=== PATIENT | female | born 1950 | race Caucasian/White ===

== ENCOUNTER → 2017-10-31 14:10 | Outpatient (CLI) | payer OTHER, MEDICARE, SELFPAY ==
--- NOTE | 2017-10-31 | DI.MRI.S_ITS ---
PROCEDURE: MR KNEE RT WO CON INDICATIONS: PRIMARY OSTEOARTHRITIS RT KNEE TECHNIQUE: Noncontrast sagittal PD fast spin echo and T2 fast spin echo with fat saturation, sagittal 3-D FLASH with fat saturation; coronal T1 spin echo and PD fast spin echo with fat saturation, and axial PD fast spin echo with fat saturation through the knee. COMPARISON: [facility] [place], CR, XR KNEE ARTHRITIC SERIES BI, 10/09/2017, 10:58. FINDINGS: Image quality: Excellent. Menisci: Amorphous high signal intensity within the anterior horn lateral meniscus is present, demonstrating superior and inferior articular surface extension, indicating degenerative tearing. Medial meniscus is intact and demonstrates mild medial extrusion. Cruciate ligaments: The anterior and posterior cruciate ligaments appear intact. Medial structures: The medial collateral ligament appears intact. Mild T2 signal elevation adjacent to the medial collateral ligament proximally is present. Visualized portions of the pes anserinus tendons appear normal. No abnormal bursal fluid. Lateral structures: The lateral collateral ligament, long and short heads of the biceps femoris tendon appear intact. The popliteus tendon appears normal. Iliotibial band appears normal. Anterior structures: The quadriceps and patellar tendons appear intact. There is lateral subluxation of the patella. There is mild edema in the infrapatellar fat pad. Bones and cartilage: No bone marrow contusions nor acute fracture. Mild ill-defined degenerative marrow edema within the lateral femoral trochlea. There is chronic well-corticated deformity of the lateral patellar facet, which demonstrates a pseudoarticulation with the lateral femoral trochlear prominence. There is moderate ill-defined T2 signal elevation within the lateral tibial plateau posteriorly adjacent to the proximal tibiofibular joint. There is mild diffuse articular cartilage loss overlying the weightbearing aspects of the medial and lateral compartments. Severe articular cartilage loss overlies the patellar apex, lateral patellar facet, lateral femoral trochlea. Joint space: There is a moderate knee joint effusion and a small Guerin's cyst. Normal appearing synovial plicae are incidentally noted. IMPRESSION: 1. Lateral patellar subluxation, which demonstrates chronic pseudoarthrosis with the lateral femoral trochlear prominence. There is associated chronic well-corticated erosion of the lateral patellar facet, and severe articular cartilage loss within the lateral patellofemoral compartment. 2. Degenerative tearing of the anterior horn lateral meniscus. 3. Proximal tibiofibular joint osteoarthritis. 4. Knee joint effusion and Guerin's cyst. 5. Mild MCL strain. Dictated by: Felipe Varela M.D. on 10/31/2017 at 15:56 Approved by: Felipe Varela M.D. on 10/31/2017 at 16:06
== END ==
PROVIDERS: Visit Provider Orthopaedic Surgery
DX: M23.241 Derangement of anterior horn of lateral meniscus due to old tear or injury, right knee (principal); M17.11 Unilateral primary osteoarthritis, right knee; M71.21 Synovial cyst of popliteal space [Baker], right knee; M25.461 Effusion, right knee
CPT/HCPCS: 73721

== ENCOUNTER 2018-02-21 09:47 | Inpatient (IN) | payer OTHER, MEDICARE, SELFPAY ==
[2018-02-06 13:59] VITALS: BMI 24.0
[2018-02-21] VITALS (13 sets, daily range): BP systolic 96–127; BP diastolic 54–77; PULSE 68–82; RESP 12–18; TEMP 35.8–36.7; O2SAT 90–100; BMI 24.5; BMI 26.0
--- NOTE | 2018-02-21 06:00 | DI.RAD.S_ITS ---
PROCEDURE: XR KNEE RT 1TO2V INDICATIONS: prosthesis placement TECHNIQUE: 2 view(s) of the knee acquired. COMPARISON: None. FINDINGS: Bones: Patient is status post knee joint arthroplasty. Hardware components are in expected positions. Visualized bony structures are intact. Soft tissues: Overlying postoperative changes are noted. IMPRESSION: Expected postsurgical changes. Dictated by: Ethan Grimes M.D. on 02/21/2018 at 18:06 Approved by: Ethan Grimes M.D. on 02/21/2018 at 18:07
[2018-02-21] MEDS: PREGABALIN 75 MG CAPSULE PO (10:46)
[2018-02-21] MEDS: ACETAMINOPHEN 325 MG TABLET 975 MG PO ×2 (10:46→20:31)
[2018-02-21] MEDS: MELOXICAM 7.5 MG TABLET 15 MG PO (10:46)
[2018-02-21] MEDS: LACTATED RINGERS 1,000 ML 42 ML IV ×2 (10:46→16:07)
[2018-02-21] MEDS: VANCOMYCIN 1,000 MG/200 ML FROZ.PIGGY 200 MG IV (13:21)
--- NOTE | 2018-02-21 14:22 | SUR.PREOP ---
Pt c/o itching and flushing after she was seen by Dr. Escobar. Pt reported MD increased ABX rate. Light erythema noted to pt's chest and face. Vancomycin stopped. Pt denied dyspnea or nausea. Dr. Escobar's PA notified, benadryl ordered.
[2018-02-21] MEDS: diphenhydrAMINE 50 MG/ML VIAL 25 MG IV (14:24)
--- NOTE | 2018-02-21 14:47 | PM.PREOP ---
Pre-operative Note Interval Note Pre-op Check: Yes History & Physical Reviewed by Physician and Yes Exam Performed Changes: No
--- NOTE | 2018-02-21 14:47 | PM.OP.1 ---
Operative Date/Time/Diagnoses Date of procedure: 02/21/18 Time of procedure: 14:59 Pre-op diagnosis: right knee oa Post-op diagnosis: same Procedure & Clinicians Procedure: Right total knee arthroplasty Same procedure as scheduled: Yes Indications: The patient has had progressively worsening right knee pain with radiographic changes consistent with arthritis. Non-operative management has failed and the patient has requested total knee replacement. The risks, benefits and alternatives to surgery were discussed with the patient prior to proceeding. Risks discussed included, but were not limited to, failure to relieve pain, stiffness, infection, nerve damage, deep venous thrombosis, pulmonary embolism, stroke, coma, heart attack, permanent paralysis and , as well as the potential need for eventual revision of the prosthetic. Surgeon: Jolene Escobar Travel Administrator: Sadie Griffiths Anesthesia Type: General and Spinal Operative Notes Findings: severe right knee osteoarthritis especially marked patellofemoral arthritic change with a relatively deficient lateral facet of her patella, good tracking of the patella and good stability Closure Type: primary Implants & Drains: Escobar and Nephashley Belle BCS2 5 FEMUR, 3 TIBIA, +9 POLY, 32 BY 7-1/2 PATELLA Estimated Blood Loss (mL): 250 Blood products transfused: none Tourniquet time (min): 78 Procedure in detail: The patient was seen in the pre-operative area, where the patient identified the right knee as the operative site and this was marked with my initials. The patient received pre-operative antibiotics, and was taken to the operating room and placed on the operative table in the supine position. After satisfactory anesthesia, a manager maritime out was performed. The right leg was encircled with a tourniquet about the proximal thigh, and the leg was prepared from the toes to the tourniquet with ChloroPrep in the usual fashion and draped through sterile drapes. The leg was elevated and exsanguinated with Eschmark bandage and the tourniquet inflated to [250] mmHg pressure. The knee was approached through an approximately 18 cm incision centered over the patella and carried into the knee through a medial parapatellar arthrotomy. A portion of the medial and lateral meniscus was resected. Soft tissue was carefully mobilized around the patella the patella was measured with a caliper. she had severe wear of her patella. The lateral facet of her patella had a defect in it which measured about total thickness of 8 mm, the medial aspect of the patella was 20 mm. Bone was resected from the patella and the patellar height was reconstituted with up an appropriate sized patellar component. I specifically medialized the patellar component and resected a portion of the severely worn lateral facet. We checked the thickness of the patella as well as patella tracking prior to making femoral cuts. A cover was then placed on the patella. A small amount of additional medial and lateral meniscus was resected. The visionare guide fit well to the distal femur. It looked like an appropriate distal femoral cut and the cut was made without difficulty. The rotation was assessed and the appropriate size femoral guide was placed on the distal femur and finishing cuts were made. There was no evidence of notching. The anterior, posterior and chamfer cuts were then made. The posterior osteophytes and soft tissues were then removed. The posterior capsule was injected with part of a mixture of 60 ml 0.25% Marcaine mixed with 20 ml Exparel for post operative pain control. The remainder of this mixture was injected into the capsule and subcutaneous tissues during cement curing. The tibia was prepared and the visionaire guide fit well to the distal tibia. The rotation was assessed. The patient was placed in extension residual medial and lateral meniscus as well as any residual bone was carefully resected. [No] additional tibia was resected. Hemostasis was achieved especially posteriorly. Additional local was injected into the posterior capsule. The extension gap was assessed and additional releases for gap balancing were performed as necessary. It was checked with the gap silver lap machine tender. The femoral component was trial was placed and the notch was finished. Trial tibial and femoral components were then placed and the knee placed through a range of motion. Range of motion was [0-130], with good stability throughout the range. The trials were then removed, and the tibia was finished. The bone was prepared with pulsatile lavage, and dried with a sponge. Cement was applied and the final prosthetics placed. Excess cement was removed during and after cement curing. A brief Betadine soak was performed. After confirming there was no extruded cement posteriorly, the final tibial insert was placed. The knee was copiously irrigated and the tourniquet deflated. Hemostasis was obtained with the Bovie. A drain was placed and brought out superolaterally, it was ultimately removed. The capsule was closed with interrupted poly suture. The subcutaneous layer was closed with barbed sutures, and the skin with a running 3-0 V-Lock suture and Surgical glue. An Aquacel Ag dressing was applied and the patient was taken to recovery having tolerated the procedure well. Complications: none Condition: stable Disposition: Acute Care Plan for aftercare: The patient will be maintained on a standard total knee replacement protocol with weight bearing as tolerated. The patient will receive aspirin and sequential compression devices for DVT prophylaxis. The patient will be discharged home when safe for the home environment.
[2018-02-21] MEDS: CLINDAMYCIN 900 MG/50 ML PIGGYBACK 50 MG IV (15:20)
--- NOTE | 2018-02-21 15:45 | SUR.OPER ---
Supine on padded OR bed. Pillow under head, arms secured on padded armboards <90 degree abduction. Safety belt across torso. Non-operative leg secured with tape over blanket over lower leg. Operative leg secured in [place]. Foam padded brace at thigh of operative leg.
[2018-02-21] MEDS: BUPIVACAINE 0.25% W/ EPI VIAL 50 ML INJ (16:00)
[2018-02-21] MEDS: BUPIVACAINE LIPOSOME 266 MG/20 ML VIAL INJ (16:03)
--- NOTE | 2018-02-21 17:45 | SUR.PHASEI ---
x-ray @ bedside currently
--- NOTE | 2018-02-21 18:19 | PC.NURSE ---
Cris shift note: Patient arrived from PACU with Kimberlee CARNEY, awake, alert and oriented. VSS. Oriented to room, environment, and plan of care. Fall precautions initiated, call light within reach.
[2018-02-21] MEDS: LACTATED RINGERS 1,000 ML 125 ML IV (18:29)
[2018-02-21] MEDS: ASPIRIN EC 81 MG TABLET PO (20:31)
[2018-02-21] MEDS: GABAPENTIN 300 MG CAPSULE PO (20:31)
[2018-02-21] MEDS: DOCUSATE 100 MG CAPSULE PO (20:31)
[2018-02-21] MEDS: DULOXETINE 20 MG CAPSULE PO (20:31)
[2018-02-21] MEDS: ZOLPIDEM 5 MG TABLET 10 MG PO (20:32)
[2018-02-22 01:24] VITALS: BP 111/63; PULSE 88; RESP 18; TEMP 36.7; O2SAT 93
[2018-02-22] MEDS: LACTATED RINGERS 1,000 ML 125 ML IV (02:31)
[2018-02-22 04:45] VITALS: BP 110/47; PULSE 64; RESP 18; TEMP 36.5; O2SAT 93
[2018-02-22 06:23] LABS: Hematocrit 30.8 % (36-46); Hemoglobin 10.2 g/dL (12.0-16.0)
--- NOTE | 2018-02-22 09:52 | PT.IIE ---
Current Diagnoses Unilateral primary osteoarthritis, right knee (02/21/18) Surgery Performed Operation Date: 02/21/18 12:00 Actual Procedures p Right Total Knee Arthroplasty(Right) - Jolene Escobar MD Surgical History (Last Updated 02/06/18 @ 14:09 by Rebecca Shirley, RN) History of back surgery (Acute ~2016) History of colonoscopy (Acute) History of total left hip arthroplasty (Acute 02/22/17) History of total right hip arthroplasty (Acute ~2002) Hx of hernia repair (Acute ~2016) S/P insertion of spinal cord stimulator (Acute) Status post Vilma fundoplication (Acute ~2016) Status post cataract extraction of both eyes with insertion of intraocular lens (Acute ~2016) Medical History (Last Updated 02/06/18 @ 14:35 by Rebecca Shirley RN) Easy bruisability (Acute) Esophageal spasm (Acute) Insomnia (Acute) Precancerous lesion (Acute) Pulmonary embolism (Acute ~2007) Sciatica (Acute) Toe deformity (Acute) Physical Therapy Inpatient Evaluation/Re-Eval M1 PT/OT-IP Prior Functional Status Start: 02/22/18 12:07 Freq: NEEDED Status: Active Protocol: Document 02/22/18 09:52 DLM (Rec: 02/22/18 12:26 DLM [id number]) Medical Review Prior Functional Status Medical History Reviewed Yes Diet/Fluid Consistency Regular Communication WNL Mobility and Gait Independent, using cane to manage her knee pain, community distances Activities of Daily Living and IADL's Independent Prior Functional Level (Other details) bilateral ANTONIA with last surgery a year ago Social History Household Members family none Living Arrangements House Number of Floors (Floors) One Floor Number of Stairs To Enter/Railing? 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 Her House is a duplex and she lives on the lower level. Her family member lives on the upper level. Her Sister will stay with her at discharge to help as needed. She normally is alone in her unit. She drives at baseline. M2 PT-IP Current Condition Start: 02/22/18 12:07 Freq: NEEDED Status: Active Protocol: Document 02/22/18 09:52 DLM (Rec: 02/22/18 12:26 DLM [id number]) Physical Therapy Current Condition Current Condition Evaluation Date 02/22/18 Treatment Diagnosis right TKA Onset Date 02/21/18 Weight Bearing Status Weight Bearing Status Weight Bear as Tolerated M3 PT-IP Subjective Start: 02/22/18 12:07 Freq: NEEDED Status: Active Protocol: Document 02/22/18 09:52 DLM (Rec: 02/22/18 12:26 DL [id number]) Subjective Physical Therapy Visit Type Type Initial Evaluation Visit Start Time 09:00 Visit Stop Time 09:52 Total Visit Minutes 52 Number of 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 Visits 0 Physical Therapy Visit Comments Patient Comments She wants to go home today, feels she is doing well post- op, worried about increasing her left knee pain with increased strain on it following right knee sx Patient Goals go home, return to work Noel 11 Therapy Pain Assessment Pain When Pain Assessed After Treatment Pain Present Pain Present Pain Reported Location Right Knee Intensity 6 Scale Used Numeric (1 - 10) Description Aching Pain Management Techniques Apply Cold Elevation M4 PT-IP Mobility and Gait Start: 02/22/18 12:07 Freq: NEEDED Status: Active Protocol: Document 02/22/18 09:52 DLM (Rec: 02/22/18 12:26 DL [id number]) PT-Bed Mobility Assessment Rolling Level of Assist Independent Supine to Sit Supine to Sit Independent Sit to Supine Sit to Supine Independent Scooting Scooting to Edge of Bed Independent Scooting Up and Down in Bed Independent PT-Transfer Assessment Sit to and From Stand Sit to and from Stand Independent Use of Upper Extremities Equipment Transfer Assistive Device Gait Belt Front Wheeled Walker Transfers Transfer Destination Chair Transfer Technique Stand Step Pivot Transfer Ability Level of Assist Independent Use of Upper Extremities Gait Assessment Gait Gait Assistance Required: Standby Assistance Distance (Feet) 160 Able to Maintain Weight Bearing Status Yes During Gait Assistive Devices Assistive Device Gait Belt Front Wheeled Walker Gait Deviations General Gait Pattern Antalgic Factors Limiting Gait Function Factors Limiting Gait Function Decreased Activity Tolerance Decreased Strength Limited Range of Motion Pain Comments Gait Comments pt started with step-to pattern but advanced herself to step-through with good control and balance, encouraged her to go slowly during gait for safety Stair Climbing Assessment Comments Stair Climbing Comments she has no stairs at home nor work and declined to do them this visit, verbalized training in step-to sequencing she should use when doing steps, will defer further training to out-pt PT PT-Balance Assessment Sitting Balance and Reactions Static Sitting Balance Ability Normal Dynamic Sitting Balance Ability Normal Standing Balance and Reactions Static Standing Balance Ability Good Dynamic Standing Balance Ability Good Device Used FWW M5 PT-IP Objective Assessments Start: 02/22/18 12:07 Freq: NEEDED Status: Active Protocol: Document 02/22/18 09:52 DLM (Rec: 02/22/18 12:26 DL [id number]) Orientation Orientation/Cognition Level of Alertness Alert Orientation Name Age Birthday Month Date Year Day of Week Place Situation Language Function Ability No Deficits Noted Memory Description No Deficits Noted Comments pt recalls exercises she was instructed in before surgery, she was not able to do many of them before sx due to knee pain Gross Range of Motion Upper Extremity ROM Assessment Within Functional Limits Lower Extremity ROM Assessment Right Impaired Impairments knee active flexion to 90 degress and extension to 0 degrees Strength Upper Extremity Strength Assessment Within Functional Limits Lower Extremity Strength Assessment Right Impaired Hip independent with straight leg raise with mild extensor lag Knee 3+/5 Ankle DF 5/5 Coordination Assessment Gross Coordination Gross Coordination WNL Sensation Assessment Sensation Gross Sensation WNL Muscle Tone Muscle Tone WNL Yes Other Assessments Other Other Assessments pt also has hx of left knee arthritis and pain, it did not limit her activity today but it may limit her as she progresses her activity level M6 PT-IP Treatment Start: 02/22/18 12:07 Freq: NEEDED Status: Active Protocol: Document 02/22/18 09:52 DLM (Rec: 02/22/18 12:26 [facility] [id number]) Physical Therapy Treatment Exercises Exercises Ankle Pumps Quad Sets Heel Slides Straight Leg Raises Short Arc Quads Passive Knee Extension Hang Seated Knee Flexion/Extension Education Education Provided Weight Bearing Status Post-Op Packet Safety Other Treatments Other Treatment Performed provided written post-op packet and HEP, answered pt's questions M7 PT-IP Assessment and Plan Start: 02/22/18 12:07 Freq: NEEDED Status: Active Protocol: Document 02/22/18 09:52 DLM (Rec: 02/22/18 12:26 DL [id number]) PT Summary Assessment and Plan Potential Rehabilitation Potential Excellent Status of Condition at Evaluation Evolving Summary Impairments Pain ROM Strength Balance Gait Activity Tolerance Assessment Summary She is tolerating activity well this visit. She is able to ambulate in the vasques with FWW and safe gait pattern. She describes increased right knee pain with increased distance of gait. Pt feels ready to go home today. She appears safe to discharge home with family support when medically cleared. Goals Gait Goal Independent Front Wheel Walker Gait Distance 200 Other Goals Independent with HEP Days to Meet Goals 1 Frequency of Treatment Frequency Of Treatment Twice a Day Treatment Plan Physical Therapy Treatment Plan Bed Mobility Training Transfer Training Gait Training Therapeutic Exercise Post Op Education Discharge Planning Hot or Cold Pack Recommendations To Nursing Amount of Assist Needed Standby Assistance Discharge Recommendations PT Discharge Recommendations Home with Assistance Outpatient PT Other Discharge Recommendations cleared for discharge home today if medically cleared by physician
[2018-02-22] MEDS: OXYCODONE IR 5 MG TABLET PO (09:57)
[2018-02-22] MEDS: DOCUSATE 100 MG CAPSULE PO (09:59)
[2018-02-22] MEDS: GABAPENTIN 300 MG CAPSULE PO (09:59)
[2018-02-22] MEDS: PANTOPRAZOLE 20 MG TABLET PO (09:59)
[2018-02-22] MEDS: ACETAMINOPHEN 325 MG TABLET 975 MG PO (09:59)
[2018-02-22] MEDS: ASPIRIN EC 81 MG TABLET PO (09:59)
[2018-02-22] MEDS: DULOXETINE 20 MG CAPSULE PO (09:59)
[2018-02-22 10:00] VITALS: BP 106/61; PULSE 84; RESP 20; TEMP 36.5; O2SAT 95
--- NOTE | 2018-02-22 10:28 | P.DS_ITS ---
History of Present Illness Date Patient Seen: 02/22/18 Time Patient Seen: 10:26 Chief complaint: [id number] Narrative: Hospital day 2, postop day 1 following right total knee arthroplasty by Dr. Escobar. Patient states she is doing well. She was able to get some sleep during the night. She has a Perez path patient. She feels that she is ready to go home today. She has not had physical therapy yet. Discharge Providers Date of admission: 02/21/18 09:47 Consults: 02/21/18 06:00 Consult to Anesthesiology Routine Comment: Consulting Provider: Anesthesiologist Reason for consultation: Regional block for post operative pain control 02/21/18 18:17 Consult to Discharge Planning Routine Comment: Consult to Physical Therapy Evaluate & Treat Comment: Physician Instructions: postop TKA protocol Consult to Respiratory Therapy Evaluate & Treat Comment: Physician Instructions: Evaluate and treat Discharge provider: Ge Mcrae PA-C Discharge Date: 02/22/18 Summary Discharge Diagnosis: Status post right total knee arthroplasty Hospital Course: Patient brought to hospital on 02/21/2018 for above-noted surgery. Remained stable postoperatively. Gradually advanced with the therapy. Ready for discharge home on postop day 1. Status at Discharge Cognitive/behavioral status at discharge: Alert oriented no acute distress. Functional status at discharge: uses cane/walker Overall status at discharge: patient is progressing back to baseline Time Spent with Patient Less than 30 minutes Exam Vital Signs (past 8 hours): - 02/22/18 04:45 Temperature 97.7 F Pulse Rate 64 Respiratory Rate 18 Blood Pressure 110/47 L Pulse Oximetry 93 Oxygen Delivery Method Room Air Oxygen Flow Rate 0 Narrative Exam Narrative: Right leg. Nicolas wrap and Aquacel dressing to right knee either dry without drainage or inflammation. No calf pain or swelling. Pulses symmetrical. Patient able to fire her quad. Objective Labs Result Diagrams: 02/22/18 06:14 Labs: Laboratory Results - last 24 hr 02/22/18 06:14 Hgb 10.2 L Hct 30.8 L Discharge Plan Discharge Plan Patient Disposition: Home Discharge comment: Discharged home after cleared by physical therapy. Patient has postop pain medications at home. She is scheduled to go to [facility] [place]. Discharge Med Rec/Prescriptions Prescriptions: New acetaminophen 325 mg Tablet 975 mg PO TID Qty: 30 RF: 0 aspirin 81 mg Tablet,Delayed Release (Dr/Ec) 81 mg PO BID Qty: 30 RF: 0 Continue zolpidem 10 MG tablet 10 mg PO HS Qty: 0 RF: 0 oxycodone-acetaminophen 10 MG/325 MG tablet 1 tab PO TID Qty: 0 RF: 0 gabapentin [Neurontin] 300 MG capsule 300 mg PO TID Qty: 0 RF: 0 omeprazole 20 mg Capsule,Delayed Release(Dr/Ec) 20 mg PO DAILY RF: 0 duloxetine 20 mg Capsule,Delayed Release(Dr/Ec) 20 mg PO BID RF: 0 Provider Discharge Instructions Diet: Diet as Tolerated Activity: Ambulate as tolerated. Do the right knee range of motion as much as possible. Cold/Heat Therapy: Cold pack to right knee as needed. Skin/Wound/Dressing Care Dressing: Keep Aquacel dressing on until postop visit. Visit Report/Discharge Packet Instructions: DI for Knee Replacement Discharge Data Attending Provider: Jolene Escobar Admit Date/Time: 02/21/18 09:47
--- NOTE | 2018-02-22 11:06 | PC.NURSE ---
Addendum entered by Samaria Bailey R.N. 02/22/18 12:27: IV discontinued, discharge instructions provided to patient and no questions remain. Patient is packed up and GREEN BUILDING ENGINEER is helping her get dressed and in wheelchair. Original Note: AM Shift pt AO, and receptive to care. Up to BSC with 1PA. Reporting 5/10 pain, administered 975 Tylenol and 5mg Oxycodone to decrease to 3/10 pain. Up in chair with family at bedside. PT worked with pt earlier and awaiting their eval for DC.
[2018-02-22 11:25] VITALS: BP 112/55; PULSE 90; RESP 16; TEMP 37; O2SAT 97
--- NOTE | 2018-02-22 13:39 | CM.DANOTE ---
Discharge Planning/Care Management CM Discharge Assessment Start: 02/22/18 13:37 Freq: Status: Discharge Protocol: Document 02/22/18 13:00 (Rec: 02/22/18 13:39 [id number]) Discharge Planning Assessment Assigned Medical Reviewer JF Velasquez Advance Directives? Yes History Provided By Patient Medical Record Has Patient been admitted in last 30 No days? Prior Living Arrangements House Household Members family none Type of transporation used prior to Drives own vehicle admit Independent with ADL's Yes Is patient alert and oriented? 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 Referrals Initiated None needed Whiteboard Updated in Patient Room with Yes name and ext. # of Medical Reviewer Please Provide Date Initial DC 02/22/18 Assessment Was Performed Pre-Anesthesia Assessment Start: 02/06/18 13:59 Freq: Status: Complete Protocol: Document 02/06/18 13:59 CAB (Rec: 02/06/18 14:34 CAB [id number]) Pre-Anesthesia Assessment Patient Information Reviewed Via Chart Review Comment Unable to reach pt for scheduled phone PAC appointment Primary Care Provider reid Seen Specialist in Last 12 Months Yes Specialist Seen Orthopedist Primary Language Lithuanian Height 175.26 cm Weight 73.936 kg Body Mass Index (BMI) 24.0 Hearing Ability Normal Visual Assist Magnifying Glass Hx Anesthesia Reactions No Hx Family Anesthesia Reaction No Hx Malignant Hyperthermia No Anesthesia Review Requested No Beer Runner No Alcohol Intake Frequency Other: None Smoking Status Never smoker Substance Use Type does not use Pain Present Pain Reported Musculoskeletal Symptoms Abnormal Gait Difficulty Walking Joint Pain History of Falling (Recent or History of No ) Patient is completely paralyzed or No completely immobile Prosthesis or Orthotic Device Cane Mental Status Oriented to own ability Is patient on oxygen? No Does patient have BASSETT/SOB No Hx Sleep Apnea No Suspected Sleep Apnea No Currently Taking a Beta Kuldeep No Hx Chest Pain No Hx SOB No Hx Syncope or Dizziness No Anti-Coagulant Therapy No Has a Maintenance Manager No Cardiac Testing No Hx Pacemaker/ICD No Pacemaker Rep Required? No Cardiac Clearance Received Not Applicable Bladder Pattern Nocturia Urinary Catheter Present No Hx Urinary Self Catheterization No Diabetes No Patient No Lactating No Presence of External or Internal Medical Yes Devices Comment Spinal cord stimulator Marital Status Single Lives With none Advance Directives? No PAC Comment Chart review with prior admit 02/22/17 for LT ANTONIA
== END 2018-02-22 12:45 | disposition home or self-care (01) | DRG 470 ==
PROVIDERS: Admitting Provider Orthopaedic Surgery; Visit Provider Orthopaedic Surgery
PROC: 0SRC0JZ Replacement of Right Knee Joint with Synthetic Substitute, Open Approach (ICD-10-PCS; CPT 27447; principal; 2018-02-21 12:00)
DX: M17.11 Unilateral primary osteoarthritis, right knee (principal); Z86.711 Personal history of pulmonary embolism
CPT/HCPCS: 36415; 73560; 85014; 85018; 97110; 97162; C1776; C9290; J1100; J1200; J2250; J2274; J2405; J2704; J3010; J3370

== ENCOUNTER 2018-09-26 06:03 | Inpatient (IN) | payer OTHER, MEDICARE, SELFPAY ==
[2018-02-21 18:15] VITALS: BMI 26.0
[2018-09-09 15:08] VITALS: BMI 24.2
[2018-09-26] VITALS (16 sets, daily range): BP systolic 99–142; BP diastolic 53–87; PULSE 74–99; RESP 12–18; TEMP 36.2–37.3; O2SAT 93–99; BMI 24.2
--- NOTE | 2018-09-26 06:00 | DI.RAD.S_ITS ---
PROCEDURE: XR KNEE LT 1TO2V INDICATIONS: post op left TKA TECHNIQUE: 2 view(s) of the knee acquired. COMPARISON: [facility], CR, XR KNEE RT 1TO2V, 02/21/2018, 17:42. FINDINGS: Bones: Patient is status post knee joint arthroplasty. Hardware components are in expected positions. Visualized bony structures are intact. Soft tissues: Overlying postoperative changes are noted. IMPRESSION: Expected postoperative appearance Dictated by: Caleb Earl M.D. on 09/26/2018 at 16:06 Approved by: Caleb Earl M.D. on 09/26/2018 at 16:07
[2018-09-26] MEDS: LACTATED RINGERS 1,000 ML 42 ML IV ×2 (06:50→09:31)
[2018-09-26] MEDS: VANCOMYCIN 1,000 MG/200 ML PIGGYBACK 200 MG IV (06:55)
[2018-09-26] MEDS: MELOXICAM 7.5 MG TABLET 15 MG PO (06:56)
[2018-09-26] MEDS: PREGABALIN 75 MG CAPSULE PO (06:56)
[2018-09-26] MEDS: ACETAMINOPHEN 325 MG TABLET 975 MG PO ×3 (06:57→20:07)
--- NOTE | 2018-09-26 07:47 | PM.PREOP ---
Pre-operative Note Interval Note History & Physical reviewed/Exam performed by Physician: Yes Changes to H&P: No
--- NOTE | 2018-09-26 07:48 | P.OP_ITS ---
Operative Date/Time/Diagnoses Date of procedure: 09/26/18 Time of procedure: 07:59 Pre-op diagnosis: left knee OA Post-op diagnosis: same Procedure & Clinicians Procedure: Left total knee arthroplasty Same procedure as scheduled: Yes Indications: The patient has had progressively worsening left knee pain with radiographic changes consistent with arthritis. Non-operative management has failed and the patient has requested total knee replacement. The risks, benefits and alternatives to surgery were discussed with the patient prior to proceeding. Risks discussed included, but were not limited to, failure to relieve pain, stiffness, infection, nerve damage, deep venous thrombosis, pulmonary embolism, stroke, coma, heart attack, permanent paralysis and , as well as the potential need for eventual revision of the prosthetic. Surgeon: Jolene Escobar Eastern Philosophy Professor: Carol Higgins Anesthesia Type: General and Spinal Operative Notes Findings: Severe left knee patellofemoral arthritis, good stability, good range of motion, good tracking of the patella Closure Type: primary Specimen(s): none sent Prosthetic devices, grafts, tissues, transplants, or devices: Escobar [employer] Nephew Yoshi BCS 2, size 5 femur, size 3 tibia, +9 poly, 32 by 7-1/2 mm patella Applied: drain(s) Estimated Blood Loss (mL): 250 Blood products transfused: none Tourniquet time (min): 70 Procedure in detail: The patient was seen in the pre-operative area, where the patient identified the left knee as the operative site and this was marked with my initials. The patient received pre-operative antibiotics, and was taken to the operating room and placed on the operative table in the supine position. After satisfactory anesthesia, a daytime caregiver out was performed. The left leg was encircled with a tourniquet about the proximal thigh, and the leg was prepared from the toes to the tourniquet with ChloroPrep in the usual fashion and draped through sterile drapes. The leg was elevated and exsanguinated with Eschmark bandage and the tourniquet inflated to [250] mmHg pressure. The knee was approached through an approximately 18 cm incision centered over the patella and carried into the knee through a medial parapatellar arthrotomy. A portion of the medial and lateral meniscus was resected. Soft tissue was carefully mobilized around the patella the patella was measured with a caliper. Bone was resected from the patella and the patellar height was reconstituted with up an appropriate sized patellar component. There was severe patellofemoral wear. A Cover was then placed on the patella. A small amount of additional medial and lateral meniscus was resected. The visionare guide fit well to the distal femur. It looked like an appropriate distal femoral cut and the cut was made without difficulty. The rotation was assessed and the appropriate size femoral guide was placed on the distal femur and finishing cuts were made. There is no evidence of notching. The anterior, posterior and chamfer cuts were then made. The posterior osteophytes and soft tissues were then removed. The posterior capsule was injected with part of a mixture of 60 ml 0.25% Marcaine mixed with 20 ml Exparel for post operative pain control. The remainder of this mixture was injected into the capsule and subcutaneous tissues during cement curing. The tibia was prepared and the visionaire guide fit well to the distal tibia. The rotation was assessed. The patient was placed in extension residual medial and lateral meniscus as well as any residual bone was carefully resected. [No] additional tibia was resected. Hemostasis was achieved especially posteriorly. Additional local was injected into the posterior capsule. The extension gap was assessed and additional releases for gap balancing were performed as necessary. It was checked with the gap canvas products sales representative. The femoral component was trial was placed and the notch was finished. Trial tibial and femoral components were then placed and the knee placed through a range of motion. Range of motion was [0-130], with good stability throughout the range. The trials were then removed, and the tibia was finished. The bone was prepared with pulsatile lavage, and dried with a sponge. Cement was applied and the final prosthetics placed. Excess cement was removed during and after cement curing. A brief Betadine soak was performed. After confirming there was no extruded cement posteriorly, the final tibial insert was placed. The knee was copiously irrigated and the tourniquet deflated. Hemostasis was obtained with the Bovie. A drain was placed and brought out superolaterally. The capsule was closed with interrupted Vicryl suture. The subcutaneous layer was closed with barbed sutures, and the skin with a running 3-0 V-Lock suture and Surgical glue. An Aquacel Ag dressing was applied and the patient was taken to recovery having tolerated the procedure well. Complications: none Condition: stable Disposition: Acute Care Plan for aftercare: The patient will be maintained on a standard total knee replacement protocol with weight bearing as tolerated. The patient will receive aspirin and sequential compression devices for DVT prophylaxis. The patient will be discharged home when safe for the home environment.
[2018-09-26] MEDS: CEFAZOLIN 2 GM/100 ML FROZ.PIGGY IV ×3 (07:54→22:24)
--- NOTE | 2018-09-26 08:29 | SUR.OPER ---
Supine on padded OR bed. Pillow under head, arms secured on padded armboards <90 degree abduction. Safety belt across torso. Non-operative leg secured with tape over blanket over lower leg. Operative leg secured in DeMayo/Surya positioner. Foam padded brace at thigh of operative leg.
[2018-09-26] MEDS: BUPIVACAINE 0.25% W/ EPI 30 ML VIAL 60 ML INJ (08:48)
[2018-09-26] MEDS: BUPIVACAINE LIPOSOME 266 MG/20 ML VIAL INJ (08:49)
[2018-09-26] MEDS: POVIDONE-IODINE 15 ML, SODIUM CHLORIDE 0.9% 250 ML TOP (08:50)
--- NOTE | 2018-09-26 11:07 | SUR.PHASEI ---
HAND OFF OF CARE AND REPORT TO ANGELIKA GARCIA
[2018-09-26] MEDS: LACTATED RINGERS 1,000 ML 125 ML IV ×2 (11:39→20:06)
[2018-09-26] MEDS: OXYCODONE IR 10 MG TABLET PO ×3 (12:05→20:06)
[2018-09-26] MEDS: GABAPENTIN 300 MG CAPSULE PO ×2 (14:25→20:08)
--- NOTE | 2018-09-26 16:55 | PT.IIE ---
Current Diagnoses Unilateral primary osteoarthritis, left knee (09/26/18) Surgery Performed Operation Date: 09/26/18 07:45 Actual Procedures p Total Knee Arthroplasty(Left) - Jolene Escobar MD Surgical History (Last Updated 09/09/18 @ 15:14 by Rebecca Shirley RN) History of arthroplasty of right knee (Acute 02/21/18) History of back surgery (Acute ~2016) History of colonoscopy (Acute) History of total left hip arthroplasty (Acute 02/22/17) History of total right hip arthroplasty (Acute ~2002) Hx of hernia repair (Acute ~2016) S/P insertion of spinal cord stimulator (Acute) Status post Vilma fundoplication (Acute ~2016) Status post cataract extraction of both eyes with insertion of intraocular lens (Acute ~2016) Medical History (Last Updated 09/09/18 @ 15:14 by Rebecca Shirley RN) Easy bruisability (Acute) Esophageal spasm (Acute) Insomnia (Acute) Precancerous lesion (Acute) Pulmonary embolism (Acute ~2007) Sciatica (Acute) Toe deformity (Acute) Physical Therapy Inpatient Evaluation/Re-Eval M1 PT/OT-IP Prior Functional Status Start: 09/26/18 18:10 Freq: NEEDED Status: Active Protocol: Document 09/26/18 16:55 AB (Rec: 09/26/18 18:19 AB [id number]) Medical Review Prior Functional Status Medical History Reviewed Yes Communication able to make needs known Mobility and Gait pt stated that she is independent with all mobilities and ambulation without AD Social History Household Members none Living Arrangements House Number of Floors (Floors) One Floor Number of Stairs To Enter/Railing? no steps to enter Home Environment High Toilet Walk in Shower Home Equipment Four Wheel Walker Straight Cane Raised Toilet Seat w/Armrests Shower Seat without Backrest Hand Held Shower Grab Bars In Shower Additional Social History Comment pt stated that she has friends /neighbors that can assist when needed. M2 PT-IP Current Condition Start: 09/26/18 18:10 Freq: NEEDED Status: Active Protocol: Document 09/26/18 16:55 AB (Rec: 09/26/18 18:19 AB [id number]) Physical Therapy Current Condition Current Condition Evaluation Date 09/26/18 Treatment Diagnosis s/p L TKA; difficulty in walking Onset Date 09/26/18 Weight Bearing Status Weight Bearing Status Weight Bear as Tolerated M3 PT-IP Subjective Start: 09/26/18 18:10 Freq: NEEDED Status: Active Protocol: Document 09/26/18 16:55 AB (Rec: 09/26/18 18:19 AB [id number]) Subjective Physical Therapy Visit Type Type Initial Evaluation Visit Start Time 16:55 Visit Stop Time 17:22 Total Visit Minutes 27 Number of HYDROELECTRIC PLANT STRUCTURAL ENGINEER Visits 0 Physical Therapy Visit Comments Patient Comments pt agreeable to do PT Therapy Pain Assessment Pain When Pain Assessed At Rest Pain Present Pain Present Pain Reported Location Right Knee Intensity 4 Scale Used increases to 8/10 with mobility Pain Management Techniques Apply Cold Re-positioning Timing of Activity with Medications M4 PT-IP Mobility and Gait Start: 09/26/18 18:10 Freq: NEEDED Status: Active Protocol: Document 09/26/18 16:55 AB (Rec: 09/26/18 18:19 AB [id number]) PT-Bed Mobility Assessment Supine to Sit Supine to Sit Standby Assistance Sit to Supine Sit to Supine Standby Assistance Scooting Scooting to Edge of Bed Standby Assistance PT-Transfer Assessment Sit to and From Stand Sit to and from Stand Contact Guard Assistance 1 Person Assistance Use of Upper Extremities Equipment Transfer Assistive Device Gait Belt Front Wheeled Walker Orthotic/Prosthetic Devices or Brace: No Gait Assessment Gait Gait Assistance Required: Contact Guard Assist Distance (Feet) 40 Able to Maintain Weight Bearing Status Yes During Gait Assistive Devices Assistive Device Gait Belt Front Wheeled Walker Orthotic/Prosthetic Devices or Brace: No Gait Deviations General Gait Pattern Antalgic Decreased Stride Length Decreased Feet Clearance Factors Limiting Gait Function Factors Limiting Gait Function Decreased Activity Tolerance Decreased Strength Limited Range of Motion Pain Poor Balance PT-Balance Assessment Sitting Balance and Reactions Static Sitting Balance Ability Good Dynamic Sitting Balance Ability Good Standing Balance and Reactions Static Standing Balance Ability Fair Dynamic Standing Balance Ability Fair Device Used FWW M5 PT-IP Objective Assessments Start: 09/26/18 18:10 Freq: NEEDED Status: Active Protocol: Document 09/26/18 16:55 AB (Rec: 09/26/18 18:19 AB [id number]) Orientation Orientation/Cognition Level of Alertness Alert Orientation Name Age Birthday Month Date Year Day of Week Place Situation Language Function Ability No Deficits Noted Safety Awareness Understands Safety Issues Memory Description No Deficits Noted Gross Range of Motion Lower Extremity ROM Assessment Within Functional Limits Impairments L knee flexion: ~ 95 degrees Strength Lower Extremity Strength Assessment Left Impaired Hip 4-/5 Knee 3+/5 Coordination Assessment Gross Coordination Gross Coordination WNL Sensation Assessment Sensation Gross Sensation WNL Muscle Tone Muscle Tone WNL Yes M6 PT-IP Treatment Start: 09/26/18 18:10 Freq: NEEDED Status: Active Protocol: Document 09/26/18 16:55 AB (Rec: 09/26/18 18:19 AB [id number]) Physical Therapy Treatment Exercises Exercises Ankle Pumps Heel Slides Education Education Provided Precautions Weight Bearing Status Post-Op Packet Safety M7 PT-IP Assessment and Plan Start: 09/26/18 18:10 Freq: NEEDED Status: Active Protocol: Document 09/26/18 16:55 AB (Rec: 09/26/18 18:19 AB [id number]) PT Summary Assessment and Plan Potential Rehabilitation Potential Good Status of Condition at Evaluation Stable Summary Impairments Pain ROM Strength Balance Bed Mobility Transfers Gait Activity Tolerance Assessment Summary pt requiring CGA with mobility . pt doing well with mobility but pt just had surgery this morning and will assess function tomorrow again. will assess safety with use of 4WW next tx session. pt's friend stated that she has a FWW that pt can borrow if needed. Goals Bed Mobility Goal Independent Transfer Goal Independent Four Wheeled Walker Gait Goal Independent Four Wheel Walker Gait Distance 200 Days to Meet Goals 3 Frequency of Treatment Frequency Of Treatment Twice a Day Treatment Plan Physical Therapy Treatment Plan Bed Mobility Training Transfer Training Gait Training Therapeutic Exercise Balance Retraining Post Op Education Discharge Planning Hot or Cold Pack Neuromuscular Re-ed Coordination Retraining Manual Therapy Other Recommendations and Next Treatment ambulation using 4WW Focus Recommendations To Nursing Amount of Assist Needed 1 Person Assist Discharge Recommendations PT Discharge Recommendations Home with Assistance Outpatient PT
[2018-09-26] MEDS: ASPIRIN EC 81 MG TABLET PO (20:07)
[2018-09-26] MEDS: DULOXETINE 20 MG CAPSULE PO (20:07)
[2018-09-26] MEDS: CALCIUM CARBONATE 500 MG TAB PO (21:40)
[2018-09-26] MEDS: ZOLPIDEM 5 MG TABLET 10 MG PO (21:49)
--- NOTE | 2018-09-26 23:08 | PC.NURSE ---
2100- changed 4x4 gauze drsg under duncan wrap, saturated with sang, sat through to outside duncan wrap, Pt requested not to have duncan wrap changed or apply outer gauze drsg, concerned r/t high allergy to latex and products containing any elastic substances, and all tape. HV 200mL out @ 1800, and 100mL out @ 2200. Oxy 10mg PO effective for pain management. Ambien for sleep. Bed alarm on and call light in reach.
[2018-09-27] MEDS: LACTATED RINGERS 1,000 ML 125 ML IV (03:39)
[2018-09-27] MEDS: OXYCODONE IR 10 MG TABLET PO ×3 (05:51→12:31)
[2018-09-27 06:21] VITALS: BP 105/75; PULSE 78; RESP 16; TEMP 36.9; O2SAT 95
[2018-09-27 06:21] LABS: Hematocrit 26.4 % (36-46); Hemoglobin 8.5 g/dL (12.0-16.0)
[2018-09-27 09:00] VITALS: BP 97/70; PULSE 87; RESP 16; TEMP 37; O2SAT 97
[2018-09-27] MEDS: DOCUSATE 100 MG CAPSULE PO (09:02)
[2018-09-27] MEDS: ACETAMINOPHEN 325 MG TABLET 975 MG PO (09:02)
[2018-09-27] MEDS: ASPIRIN EC 81 MG TABLET PO (09:02)
[2018-09-27] MEDS: DULOXETINE 20 MG CAPSULE PO (09:09)
[2018-09-27] MEDS: GABAPENTIN 300 MG CAPSULE PO (09:10)
[2018-09-27] MEDS: PANTOPRAZOLE 20 MG TABLET PO (09:10)
--- NOTE | 2018-09-27 10:13 | PT.IPTN ---
Current Diagnoses Unilateral primary osteoarthritis, left knee (09/26/18) Surgery Performed Operation Date: 09/26/18 07:45 Actual Procedures p Total Knee Arthroplasty(Left) - Jolene Escobar MD Physical Therapy Treatment Note M2 PT-IP Current Condition Start: 09/26/18 18:10 Freq: NEEDED Status: Active Protocol: Document 09/26/18 16:55 AB (Rec: 09/26/18 18:19 AB [id number]) Physical Therapy Current Condition Current Condition Evaluation Date 09/26/18 Treatment Diagnosis s/p L TKA; difficulty in walking Onset Date 09/26/18 Weight Bearing Status Weight Bearing Status Weight Bear as Tolerated M3 PT-IP Subjective Start: 09/26/18 18:10 Freq: NEEDED Status: Active Protocol: Document 09/27/18 09:35 LJ (Rec: 09/27/18 10:12 LJ [id number]) Subjective Physical Therapy Visit Type Type Treatment Note Visit Start Time 09:35 Visit Stop Time 10:00 Total Visit Minutes 25 Number of BELL STAFF Visits 1 Physical Therapy Visit Comments Patient Comments pt agreeable to do PT Therapy Pain Assessment Pain When Pain Assessed At Rest Pain Present Pain Present Pain Reported M4 PT-IP Mobility and Gait Start: 09/26/18 18:10 Freq: NEEDED Status: Active Protocol: Document 09/27/18 09:35 LJ (Rec: 09/27/18 10:12 LJ [id number]) PT-Transfer Assessment Sit to and From Stand Sit to and from Stand Standby Assistance Use of Upper Extremities Equipment Transfer Assistive Device Gait Belt Front Wheeled Walker Orthotic/Prosthetic Devices or Brace: No Gait Assessment Gait Gait Assistance Required: Standby Assistance Distance (Feet) 150 Able to Maintain Weight Bearing Status Yes During Gait Assistive Devices Assistive Device Gait Belt Front Wheeled Walker Orthotic/Prosthetic Devices or Brace: No Gait Deviations General Gait Pattern Antalgic Decreased Stride Length Decreased Feet Clearance Factors Limiting Gait Function Factors Limiting Gait Function Decreased Activity Tolerance Decreased Strength Limited Range of Motion Pain Poor Balance Comments Gait Comments Pt doing well with gait and mobility. Esercises safety and good balance while walking. Pt required one verbal cue to lift LLE toes for heel strike and was able to do so the duration of entire treatment. No complaints of fatigue or pain until returning to room and them the pain reported was mild. Pt safe to D/C home with assist. M5 PT-IP Objective Assessments Start: 09/26/18 18:10 Freq: NEEDED Status: Active Protocol: Document 09/26/18 16:55 AB (Rec: 09/26/18 18:19 AB [id number]) Orientation Orientation/Cognition Level of Alertness Alert Orientation Name Age Birthday Month Date Year Day of Week Place Situation Language Function Ability No Deficits Noted Safety Awareness Understands Safety Issues Memory Description No Deficits Noted Gross Range of Motion Lower Extremity ROM Assessment Within Functional Limits Impairments L knee flexion: ~ 95 degrees Strength Lower Extremity Strength Assessment Left Impaired Hip 4-/5 Knee 3+/5 Coordination Assessment Gross Coordination Gross Coordination WNL Sensation Assessment Sensation Gross Sensation WNL Muscle Tone Muscle Tone WNL Yes M6 PT-IP Treatment Start: 09/26/18 18:10 Freq: NEEDED Status: Active Protocol: Document 09/26/18 16:55 AB (Rec: 09/26/18 18:19 AB [id number]) Physical Therapy Treatment Exercises Exercises Ankle Pumps Heel Slides Education Education Provided Precautions Weight Bearing Status Post-Op Packet Safety M7 PT-IP Assessment and Plan Start: 09/26/18 18:10 Freq: NEEDED Status: Active Protocol: Document 09/27/18 09:35 LJ (Rec: 09/27/18 10:12 LJ [id number]) PT Summary Assessment and Plan Summary Assessment Summary Pt doing well. SBA for all mobility and gait. Safety aware and normalizing gait as is able. Good foot clearance and step distance with use of FWW. Safe to D/C home with assist Goals Bed Mobility Goal Independent Transfer Goal Independent Four Wheeled Walker Gait Goal Independent Four Wheel Walker Gait Distance 200 Days to Meet Goals 3 Frequency of Treatment Frequency Of Treatment Twice a Day Treatment Plan Physical Therapy Treatment Plan Gait Training Therapeutic Exercise Balance Retraining Hot or Cold Pack Recommendations To Nursing Amount of Assist Needed 1 Person Assist Discharge Recommendations PT Discharge Recommendations Home with Assistance Outpatient PT
--- NOTE | 2018-09-27 10:23 | CM.DANOTE ---
Addendum entered by Madeleine Oneil LPN 09/27/18 10:46: Met with pt as planned. Introduced self and role. Pt reports she already worked with PT this morning, does not need another session and has been ok'd to use the 4ww that she already has at home. She clarifies her living situation. She has owns a home and property in [facility] and lives in the bottom half of her home. This is a 2 bedroom apt and with no stairs. Her sister Hannah lives in the separate upper half of building. Pt plans outpt at [facility] and her sister and neighbors will drive her there. Pt has no one who will be staying with her. 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 She says [facility] and talked with [facility] and is very certain that caregiver assist will be paid for If I have an order from the doctor. Discussed this in more detail and this DCPlanner has not seen pvt caregivers covered before in this way. Pt remained adamant that all she needed was an order saying patient needs assistance at home while recovering from knee surgery. Updated MEGHNA Mcrae who will give her a script for same. Pt expresses thankfulness for this and says that if there are further questions re this when she gets home she will follow up with Dr. Escobar. Asked if she used this service with her last knee and she said no. But I had a friend staying with me. That is not happening this time. Pt expresses eagerness to d/c once she has this script. Did caution her that there may be a misunderstanding on her part re her benefits but she continues to insist that she will handle it all. She says she has no interest in hiring any private caregivers. RN Hannah is updated. She expects pt to d/c about 1300. Original Note: Discharge Planning/Care Management DCP: assessment: case received, EMR reviewed. Discussed case in Team Rounds. Ortho MEGHNA Mcrae noted that pt will d/c to home setting today. Pt is a 68 year old female who admitted yesterday for a planned L TKA. OF NOTE: pt had a R TKA done in 2017 and did d/c to home setting. Payer: [employer] and Medicare Will check in with pt now and follow prn. PT plans to see pt again today. Advanced directive, confirm from FAMILY Start: 09/26/18 11:22 Freq: Q24H Status: Active Protocol: Document 09/26/18 11:22 CM (Rec: 09/26/18 11:24 CM [id number]) Advance Directive, confirm on record Time 11:24 Person contacted Patient Copy received Yes Document 09/26/18 23:00 KLD (Rec: 09/26/18 23:57 KLD [id number]) Advance Directive, confirm on record Time 11:24 Person contacted Patient Copy received Yes CM Discharge Assessment Start: 09/27/18 10:21 Freq: Status: Active Protocol: Document 09/27/18 10:21 ITV (Rec: 09/27/18 10:23 ITV [id number]) Discharge Planning Assessment Advance Directives? Yes Advance Directives on File No: requested copy from Pt-Pt lives in [place] History Provided By Patient Medical Record Has Patient been admitted in last 30 No days? Prior Living Arrangements House Household Members none Is patient alert and oriented? Yes Patient/Family Preference OP PT Therapy Comment is set up already with [facility] Discharge Plan Home Referrals Initiated None needed Whiteboard Updated in Patient Room with Yes name and ext. # of Lead Consultant Review Status In Process Pre-Anesthesia Assessment Start: 09/09/18 15:08 Freq: Status: Active Protocol: Document 09/09/18 15:08 CAB (Rec: 09/09/18 15:17 CAB [id number]) Pre-Anesthesia Assessment PAC Comment Pt declined PAC phone assessment, states no changes to medical or medication history. She had no questions on medications. Chart review only. Spinal cord stimulator by history Patient Information Reviewed Via Chart Review Primary Care Provider Tabitha Olvera Seen Specialist in Last 12 Months Yes Specialist Seen Orthopedist Primary Language Nepalese Preferred Language Nepalese Height 175.26 cm Weight 74.389 kg Body Mass Index (BMI) 24.2 Hearing Ability Normal Visual Assist Magnifying Glass Barriers to Learning None Other Aids No Hx Anesthesia Reactions No Hx Family Anesthesia Reaction No Hx Malignant Hyperthermia No Hx Blood Transfusions No Hx Blood Transfusion Reaction No Anesthesia Review Requested No Patient Insurance Clerk No alcohol intake never Smoking Status Never smoker Substance Use Type does not use Pain Present Pain Reported Musculoskeletal Symptoms Abnormal Gait Difficulty Walking Joint Pain History of Falling (Recent or History of No ) Patient is completely paralyzed or No completely immobile Prosthesis or Orthotic Device Cane Mental Status Oriented to own ability Is patient on oxygen? No Does patient have BASSETT/SOB No Hx Sleep Apnea No CPAP/BIPAP use not prescribed Suspected Sleep Apnea No Currently Taking a Beta Kuldeep No Hx Chest Pain No Hx SOB No Hx Syncope or Dizziness No Anti-Coagulant Therapy No Has a Post Acute Care Nurse Practitioner No Cardiac Testing No Hx Pacemaker/ICD No Pacemaker Rep Required? No Cardiac Clearance Received Not Applicable dysphagia No Bladder Pattern Nocturia Urinary Catheter Present No Hx Urinary Self Catheterization No Diabetes No Patient No Hx Drug Resistant Organism No Presence of External or Internal Medical Yes: Alberto ANTONIA, Spinal Devices stimulator implant Marital Status Single Lives With none Patient Discharge Plan Description Return Home Do You Have Any Spiritual Beliefs That No May Affect Your HC Choices? Do You Have Any Cultural Practices That No May Affect Your HC Choices? Emergency Contact Name Hannah Kern Emergency Contact Advance Directives? Yes Power of Take Away Attendant Yes Power of Take Away Attendant Name KathleenBrandon Power of Take Away Attendant Comment Pt told crime analyst she has all needed instructions, declined PAC phone vishnu
--- NOTE | 2018-09-27 10:47 | PM.DS.1 ---
History of Present Illness Date Patient Seen: 09/27/18 Time Patient Seen: 10:52 Chief complaint: Total Left Knee Arhtroplasty Narrative: Hospital day 2, postop day 1 following left total knee arthroplasty. Patient remained stable postoperatively. At using Tylenol and oxycodone 10 mg for pain. She is a [facility]. She is on a pain contract with her PCP who is prescribing postop pain med. Patient was also seen by Dr. Escobar this morning. She recommends the patient can go home. Patient is asking about having help at home with meals and house work. Discharge Providers Date of admission: 09/26/18 06:03 Discharge Date: 09/27/18 Consults: 09/26/18 06:00 Consult to Anesthesiology Routine Comment: Consulting Provider: Anesthesiologist Reason for consultation: Regional block for post operative pain control 09/26/18 11:06 Consult to Discharge Planning Routine Comment: Consult to Physical Therapy Evaluate & Treat Comment: Physician Instructions: postop TKA protocol Consult to Respiratory Therapy Evaluate & Treat Comment: Physician Instructions: Evaluate and treat Discharge provider: Ge Mcrae PA-C Summary Discharge Diagnosis: Status post left total knee arthroplasty Hospital Course: Patient brought to hospital on 09/26/2018 for above-noted surgery. She remained stable postoperatively. Progressed with physical therapy. Ready for discharge home on postop day 1. Status at Discharge Cognitive/behavioral status at discharge: oriented Functional status at discharge: uses cane/walker Overall status at discharge: patient is progressing back to baseline Time Spent with Patient Less than 30 minutes Exam Vital Signs (past 8 hours): - 09/27/18 06:21 Temperature 98.5 F Pulse Rate 78 Respiratory Rate 16 Blood Pressure 105/75 Pulse Oximetry 95 Oxygen Delivery Method Room Air Oxygen Flow Rate 0 Narrative Exam Narrative: Alert, oriented no acute distress resting in bed. Legs. Nicolas wrap an Aquacel dressing to left knee is dry without drainage or inflammation. Hemovac in place. No calf pain or swelling. Pulses symmetrical. Objective Labs Result Diagrams: 09/27/18 06:09 Labs: Laboratory Results - last 24 hr 09/27/18 06:09 Hgb 8.5 L Hct 26.4 L Discharge Plan Discharge Plan Patient Disposition: Home Discharge comment: Discharged home today after cleared by PT. She has a [facility] patient and has prescription for oxycodone at home. She will go to [facility] in [place] for physical therapy. Patient was given a note stating that she needed help at home following her surgery. She is to take aspirin 81 mg 1 b.i.d. times 30 days postop. Discharge Med Rec/Prescriptions Prescriptions: New acetaminophen 325 mg Tablet 975 mg PO TID Qty: 30 RF: 0 aspirin 81 mg Tablet,Delayed Release (Dr/Ec) 81 mg PO BID Qty: 60 RF: 0 Continued zolpidem 10 MG tablet 10 mg PO HS Qty: 0 RF: 0 oxycodone-acetaminophen 10 MG/325 MG tablet 1 tab PO TID Qty: 0 RF: 0 gabapentin [Neurontin] 300 MG capsule 300 mg PO TID Qty: 0 RF: 0 omeprazole 20 mg Capsule,Delayed Release(Dr/Ec) 20 mg PO DAILY RF: 0 duloxetine 20 mg Capsule,Delayed Release(Dr/Ec) 20 mg PO BID RF: 0 Provider Discharge Instructions Activity: Ambulate as tolerated. Use walker as needed. Do left knee range of motion as much as possible. Cold/Heat Therapy: Cold pack to left knee as needed. Skin/Wound/Dressing Care Report to your healthcare provider any signs of infection, such as:: chills, fever, night sweats, increased pain, unusual drainage and unusual redness Dressing: Keep Aquacel dressing in place until postop visit. Visit Report/Discharge Packet Instructions: DI for Knee Replacement Discharge Data Attending Provider: Jolene Escobar Admit Date/Time: 09/26/18 06:03 Quality VTE Deep Vein Thrombosis/Pulmonary Embolism Present on Admission: No
[2018-09-27] MEDS: CALCIUM CARBONATE 500 MG TAB PO (11:00)
--- NOTE | 2018-09-27 11:03 | PC.NURSE ---
Addendum entered by Hannah Mckeon R.N. 09/27/18 13:55: DC - sl removed, reviewed dc instructions, no new scripts other than one for home chore assistance that pt requested, dressed, clothing, glasses, cell phone, addl dsg if needed supplied, tsf to and escorted to sister's car by carpenter cradle and dolly via . Original Note: AM NOTE - pt alert, states l knee pain 3 on scale 0/10, sore when moving, + sensation feet, ankle waves, calf pumps, +cms, , guaze at incision w/duncan wrap over, shadow drainage at distal end, per Dr. Escobar remove and replace dsg, hemovac compressed w/serosang, later when in chair, hemovac dislodged, catheter intact and squarely cut, pressure applied and op site over, pt states this type dressing has been ok, knee incision is well approximated w/o drainage, surrounding bruising, placed a telfa pad over and then 2 larger opsite dsgs, after phys therapy, cleared for dc home, ivf saline lock, no dizziness, gait w/fww was steady, friend notified who will be in around lunch to pick remover, given 10mg oxycodone prior to mobilization with phys therapy.
== END 2018-09-27 13:35 | disposition home or self-care (01) | DRG 470 ==
PROVIDERS: Admitting Provider Orthopaedic Surgery; Visit Provider Orthopaedic Surgery
PROC: 0SRD0JZ Replacement of Left Knee Joint with Synthetic Substitute, Open Approach (ICD-10-PCS; CPT 27447; principal; 2018-09-26 07:45)
DX: M17.12 Unilateral primary osteoarthritis, left knee (principal); Z96.651 Presence of right artificial knee joint; K21.9 Gastro-esophageal reflux disease without esophagitis
CPT/HCPCS: 36415; 73560; 85014; 85018; 94762; 97116; 97161; C1776; C9290; J0690; J1100; J1170; J2250; J2405; J2704; J3010